=== PATIENT | male | born 2005 | race Caucasian/White ===

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

== ENCOUNTER 2025-06-11 13:53 | Emergency (ER) | payer OTHER, SELFPAY ==
--- OUTSIDE RECORDS SUMMARY | 2025-06-11 13:55 | XMS_ITS | Clinical Summary ---
Author Organization [facility] [employer] Address [address] [place] [address] Care Team Providers Care Tax Lawyer Name Role Phone Prem Silva PA-C Unavailable [phone] Source Comments [facility],non-owned Affiliates and Associated Physician Practices is amultiple site organization consisting of ambulatory clinics and hospital sitesin [place], [place], [place] and [place]. This disclosure is being madepursuant to the Care Everywhere program and may not contain all informatio navailable regarding this patient. Last updated 18.[facility] [employer] Allergies Active Allergy Reactions Criticality Noted Date Comments Ketamine Rash Low 01/06/2011 Medications * Be aware that medications may not be up to date on this document. Alwaysverify current medications with the patient. omeprazole (PRILOSEC) 40 MG capsule Take 1 (one) capsule by mouth daily before breakfast 40 capsule 1 Active Additional Information Patient not taking.Reported on 04/17/2023 ondansetron (ZOFRAN) 4 MG tablet Take 1 (one) tablet by mouth every 6 hours as needed for Nausea/Vomiting 10 tablet 1 Active Additional Information Patient not taking.Reported on 04/17/2023 sertraline (Zoloft) 25 MG tablet Take 1 (one) tablet by mouth once daily 30 tablet 1 2 Active Additional Information Patient not taking.Reported on 04/17/2023 FLUoxetine (PROzac) 10 MG capsule Take 1 (one) capsule by mouth every morning 30 capsule 3 Active Additional Information Patient not taking.Reported on 04/17/2023 hydrOXYzine HCl (Atarax) 25 MG tablet Take 1 (one) tablet by mouth 4 times daily as needed (anxiety) 30 tablet 3 Active Additional Information Patient not taking.Reported on 04/17/2023 dextroamphetamine SR 24hr (Dexedrine Spansule) 10 MG capsuleIndication s:Attention deficit hyperactivity disorder (ADHD), unspecified ADHD type Take 2 (two) capsules by mouth once daily 60 capsule 4 Active Active Problems Problem Noted Date Diagnosed Date Acne vulgaris 05/23/2020 Attention deficit hyperactivity disorder (ADHD) 07/28/2019 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 Resolved Problems Problem Noted Date Diagnosed Date Resolved Date Closed displaced fracture of neck of left fourth metacarpal bone 09/08/2020 04/17/2023 Arthralgia of shoulder 02/17/201310/27 Arthralgia of elbow 02/10/2013 10/27/19 19 Other closed fractures of di stal end of radius (alone) 01/16/2011 05/23/2020 Closed fracture of shaft of bone of forearm 08/17/2010 10/27/2018 Immunizations Immunization Administration Dates Next Due DTaP VACCINE IM (6wk-6yrs) 03/02/2011,,07/22/2006,05/23,03/22/2006 HEP A PEDS 2 DOSE 01/13/2008,01/07/2007 HEP B VACCINE, PED/ADOL 10/04/2006,01/29/2006, HIB-PRP-T 4 DOSE 07/01/2007, 6,05/23/2006,03/22 Human Papilloma Virus Vaccine 12/13/2017, 017 INFLUENZA VACCINE 06/04/2018, 6,06/22/2014,07/23,07/28/2012,07/21/2010 INFLUENZA VACCINE, QUADR. (F LUZONE; FLULAVAL; FLUARIX; AFLURIA QUADRIVALENT; 6MO+), 0.5 ML (IIV4) 05/23/2020,07/28/2019,06/04/2018,06/07,05/25/2016 EVANGELINA VACCINE QUAD LAIV4 PF NASAL 06/22/2014,2012 MENINGOCOCAL MENINGITIS 06/07/2017 MMR 03/02/2011,01/07/2007 Meningococcal ACWY (Menquadfi) Vac IM 04/17/2023 Meningococcal B Recombinant 2 Dose, IM 3,04/17/2023 PNEUMOCOCCAL PCV7 CONJ, PEDS 07/01/2007, 07/22/2006,05/23/2006,03/22 POLIO IPV 03/02/2011, 7,05/23/2006,03/22 TDAP (7yrs+) 01/17/2016 VARICELLA 03/02/2011,01/07/2007 Family History Medical History Relation Name Comments Allergic Rhinitis Father Asthma Father Hypertension Father CAD (Coronary Artery Disease) Maternal Grandfather Cancer - Breast Maternal Grandmother Diabetes - Type 1 Maternal Grandmother Hypertension Mother CVA Paternal Grandmother Relation Name Status Comments Father Maternal Grandfather Maternal Grandmother Mother Paternal Grandmother Social History Tobacco Use Types Packs/Day Years Used Date Smoking Tobacco: Never Smokeless Tobacco: Never PHQ-2 Answer Date Recorded Patient Health Questionnaire-2 Score 0 04/17/2023 Sex and Gender Information Value Date Recorded Sex Assigned at Not on file Legal Sex Male 11:41 AM QUALITY CONTROL HEAD Gender Identity Not on file Sexual Orientation Not on file Last Filed Vital Signs Vital Sign Reading Time Taken Comments Blood Pressure 124/83 04/17/2023 8:40 AM CDT Pulse 50 04/17/2023 8:40 AM CDT Temperature 37.1 C (98.7 F) 04/17/2023 8:40 AM CDT Respiratory Rate 16 07/14/2021 2:50 PM CDT Oxygen Saturation 99% 07/14/2021 11:16 AM CDT Inhaled Oxygen Concentration - - Weight 68 kg (150 lb) 04/17/2023 8:40 AM CDT Height 184.2 cm (6' 0.5) 10/12/2022 4:40 PM QUALITY CONTROL HEAD Body Mass Index - - Plan of Treatment Health Maintenance Due Date Last Done Comments HEPATITIS C SCREENING 12/21/2023 DEPRESSION SCREENING 09/09/2024 10/12/2022, 06/13/2022, 05/23/2020 COVID-19 VACCINE (1 - 2023-2 5 season) 2025 INFLUENZA VACCINE (#1) 2025 , 07/28/2019, 06/04/2018, Additional history exists DTAP/TDAP/TD VACCINES (7 - T d or Tdap) 01/16/2026 01/17/2016, 03/02/2011, 07/01/2007, Additional history exists ZOSTER VACCINE (1 of 2) 12/26/2055 HEPATITIS B VACCINE Completed 10/04/2006, 01/29/2006, 2005 HIB VACCINE Completed 07/01/2007, 07/10, 05/23/2006, Additional history exists PNEUMOCOCCAL VACCINE Completed 07/01/2007, 07/22/2006, 05/23/2006, Additional history exists HPV VACCINE Completed 12/13/2017, 06/07/2017 HIV SCREENING Completed 07/14/2021 MENINGOCOCCAL GROUPS A/C/Y/W VACCINE Completed 04/17/2023, 06/07/2017 MENINGOCOCCAL (Group B) VACC INE SHARED DECISION-MAKING Completed 05/20/2023, 04/17/2023 Goals Goal Patient Goal Type Associated Problems Recent Progress Patient-Stated? Author Use safety retraint in car Lifestyle On track( 023 8:40 AM CDT) No Marlene Davis RN Procedures Procedure Name Priority Date/Time Associated Diagnosis Comments HIV-1 HIV-2 ANTIBODY + HIV P24 AG PANEL STAT 07/14/2021 12:50 PM CDT from Last 3 Months or Most Recently Relevant to Health Maintenance Results * HIV-1 HIV-2 ANTIBODY + HIV P24 AG PANEL (07/14/2021 12:50 PM CDT) HIV Antigen/Antibod y 1 & 2 Non-reacti ve Non-react asif 07/14/2021 2:00 PM CDT [facility] Comment:Neither HIV-1 p24 An tigen nor HIV-1/HIV-2 Antibodies are detected. Blood BLOOD SPECIMEN / Unknown Venipuncture / Unknown 07/14/2021 12:50 PM CDT 07/14/2021 12:58 PM CDT Aristeo Marc MD LAB - CHEMISTRY ORDERABLES Final Result [facility] [address] [place] [address], [facility] [phone] from Last 3 Months or Most Recently Relevant to Health Maintenance Insurance [facility] [place] [address] [facility] [place] [address] Care Teams Tax Lawyer Relationship Specialty Start Date End Date Prem Silva PA-C [address] [place] [address] Orthopedic 10/04/20
--- OUTSIDE RECORDS SUMMARY | 2025-06-11 13:55 | XMS_ITS | Encounter Summary ---
Author Organization [facility] Address [address] [place] [address] Care Team Providers Care Home Maker Name Role Phone Ambar Castro MD Primary Care Provider [phone] Prem Silva-C Unavailable Encounter Details Date Type Department Care Team (Late st Contact Info) Description 07/14/2021 Telephone [facility] PHYS STANDARD [address] [place] [id number] Param Worthy MD [facility] [place], [place] [id number] Social History Tobacco Use Types Packs/Day Years Used Date Smoking Tobacco: Never Smokeless Tobacco: Never Sex and Gender Information Value Date Recorded Sex Assigned at Not on file Legal Sex Male 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 Worsening in the past weeks epigastric/ periumbilical. now with some radiation to the back. + weight loss, and intermittent NBNB emesis. Treated at home with H2RA and NSAIDS. Exam is benign with no signs of peritoneal irritation per ED team. Labs show normal HB/HCT, no leukocytosis, no thrombocytosis, normal lipase, IgA normal I recommended completing TTG IgA , CRP,ESR. Ok to follow up in clinic in 1-2 weeks, recommend PPI 40 mg OD and avoiding NSAIDS, other gastric irritants. Com back to the ER if he has severe pain , hematemesis, melena, intractable emesis, or is otherwiseunable to tolerate PO. Param Santoyo MD FAAP Pediatric Gastroenterology, Hepatology, and Nutrition [facility] Resident Doctor of Pediatrics [facility] documented in this encounter Plan of Treatment Not on file documented as of this encounter Goals Goal Patient Goal Type Associated Problems Recent Progress Patient-Stated? Author Use safety retraint in car Lifestyle On track( 023 8:40 AM CDT) No Marlene Davis RN documented as of this encounter Visit Diagnoses Not on filedocumented in this encounter Care Teams Home Maker Relationship Specialty Start Date End Date Ambar Castro MD PCP - General Pediatrics 10/27/18 04/28/25 Prem Silva PA-C [facility] [place] [address] Orthopedic 10/04/20 documented as of this encounter
--- OUTSIDE RECORDS SUMMARY | 2025-06-11 13:55 | XMS_ITS | Encounter Summary ---
Author Organization [facility] Address [address] Leal: Epic Prelude ADT [place] [address] Care Team Providers Care Grease Maker Head Name Role Phone Kendra Mata MD Primary Care Provider + Encounter Details Date Type Department Care Team (Late st Contact Info) Description 2005 [place] [address] [place] [id number] Single LB-in Hospit[facility] (Primary Dx) Social History Tobacco Use Types Packs/Day Years Used Date Smoking Tobacco: Never Assessed Sex and Gender Information Value Date Recorded Sex Assigned at Not on file Legal Sex Male 2:50 AM INDUSTRIAL SPRAYPAINTER Gender Identity Not on file Sexual Orientation Not on file documented as of this encounter Plan of Treatment Not on file documented as of this encounter Visit Diagnoses Diagnosis Single liveborn, born in hospital, delivered without mention of delivery- Primary documented in this encounter Care Teams Grease Maker Head Relationship Specialty Start Date End Date Kendra Mata MD PCP - General 09/12/09 documented as of this encounter
--- OUTSIDE RECORDS SUMMARY | 2025-06-11 13:55 | XMS_ITS | Encounter Summary ---
Author Organization [facility] Address [address] [place] [address] Care Team Providers Care Project Administrative Assistant Name Role Phone Kendra Mata MD Primary Care Provider + Encounter Details Date Type Department Care Team (Late st Contact Info) Description 2005 Outpatient Historical [facility] Hearing Services [facility] [address] [place] [address] Mary Negro [facility] [address] [place] [address] Social History Tobacco Use Types Packs/Day Years Used Date Smoking Tobacco: Never Assessed Sex and Gender Information Value Date Recorded Sex Assigned at Not on file Legal Sex Male 2:50 AM INFORMATION TECHNOLOGY INSTRUCTOR Gender Identity Not on file Sexual Orientation Not on file documented as of this encounter Plan of Treatment Not on file documented as of this encounter Visit Diagnoses Not on filedocumented in this encounter Care Teams Project Administrative Assistant Relationship Specialty Start Date End Date Kendra Mata MD PCP - General 09/12/09 documented as of this encounter
--- OUTSIDE RECORDS SUMMARY | 2025-06-11 13:55 | XMS_ITS | Clinical Summary ---
Author Organization [facility] Address [address] [place] [address] Phone Care Team Providers Care Content Writer Name Role Phone Kendra Mata MD Primary Care Provider + Allergies No known active allergies Medications No known medications Social History Tobacco Use Types Packs/Day Years Used Date Smoking Tobacco: Never Assessed Sex and Gender Information Value Date Recorded Sex Assigned at Not on file Legal Sex Male 2:50 AM DIET SUPERVISOR Gender Identity Not on file Sexual Orientation Not on file Last Filed Vital Signs Vital Sign Reading Time Taken Comments Blood Pressure - - Pulse 97 10/05/2009 11:13 AM DIET SUPERVISOR Temperature 36.6 C (97.9 F) 10/05/2009 11:13 AM DIET SUPERVISOR Respiratory Rate 20 10/05/2009 11:13 AM DIET SUPERVISOR Oxygen Saturation 97% 10/05/2009 11:13 AM DIET SUPERVISOR Inhaled Oxygen Concentration - - Weight 17.6 kg (38 lb 12.8 oz) 10/05/2009 8:48 A M DIET SUPERVISOR Height - - Body Mass Index - - Plan of Treatment Health Maintenance Due Date Last Done Comments CHLAMYDIA SCREENING (ANNUAL) 11-24 YEARS 2016 HPV VACCINES (1 - Male 3-dose series) 2020 DTAP/TDAP/TD VACCINES (1 - Tdap) 2024 HEPATITIS B VACCINES (1 of 3 - 19+ 3-dose series) 12/08 INFLUENZA VACCINE (#1) 2025 Medical Devices Implanted Type Area Seat Joiner Device Identifier Shelf Expiration Date Model / Serial / Lot Tube Vent Collar Button Ultrasil [id number] - [id number] Implanted:Qty: 1 on 10/05/2009 at [facility] Ear Bilateral : Ear [employer] [id number] / [id number] / Insurance OPT[employer] PPO [id number] [facility] OPTIONS PPO [id number] Care Teams Content Writer Relationship Specialty Start Date End Date Kendra Mata MD PCP - General 09/12/09
[2025-06-11 14:02] VITALS: BP 127/82; PULSE 65; RESP 18; TEMP 36.8; O2SAT 100
--- NOTE | 2025-06-11 14:55 | ED.SKABFB ---
HPI - Skin/Abscess/Foreign Bdy General Chief complaint: Skin/Abscess/Foreign Body Stated complaint: Bilateral Feet Pain Time Seen by Provider: 06/11/25 14:25 Source: patient and RN notes reviewed Mode of arrival: ambulatory Limitations: no limitations History of Present Illness HPI narrative: 19-year-old male presents Express Care complaining of bilateral feet pain proximally 3 weeks. 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 Over the last 2 weeks patient states that he has increasing worsening pain to the bottom of his feet primarily ears toes and reports having sores on the pads of his feet. Patient has tried different socks without relief. Patient has not tried any medications to help with symptoms. Patient says he has athlete's foot in the past. Patient denies any falls or injuries to his feet. Related Data Home Medications ?Medication ?Instructions ?Recorded ?Confirmed ?Last Taken ?Type dextroamphetamine-amphetamine ER 10 mg PO DAILY 09/20/21 06/11/25 Unknown History 20 mg 24hr capsule,extend release Allergies Allergy/AdvReac Type Severity Reaction Status Date / Time ketamine Allergy Severe Anaphylactic Verified 06/11/25 14:02 Shock Review of Systems Review of Systems: CONSTITUTIONAL: Denies fever, chills, or sweats. EYES: Denies visual changes, redness, or discharge. ENT: Denies rhinorrhea, congestion, sore throat, or otalgia. CARDIOVASCULAR: Denies chest pain, palpitations, or edema. RESPIRATORY: Denies cough or dyspnea. GASTROINTESTINAL: Denies abdominal pain, nausea, vomiting, or diarrhea. GENITOURINARY: Denies dysuria or hematuria. SKIN: Denies rash or itching. Positive for wounds. MUSCULOSKELETAL: Denies back pain, joint pain, or myalgia. Positive for feet pain. NEUROLOGIC: Denies headache, numbness, or weakness. PSYCHIATRIC: Denies anxiety or depression. All other systems reviewed are negative, except as documented in HPI. PMFSH Comments At the time of my signature, I reviewed and agree with the nursing past medical, surgical, social, and family history. There is no relevant family history pertinent to the patient complaint. Exam Narrative: GENERAL: This is a well-nourished, well-developed adult, in no apparent distress. They are non ill-appearing, nontoxic appearing. HEAD: normocephalic, atraumatic. EYES: Sclera clear/white. Conjunctiva normal. Vision is grossly intact. Extraocular movements intact EARS: External ears normal, Hearing grossly intact. NOSE: External nose normal THROAT: Mucous membranes moist, NECK: Neck supple, CARDIOVASCULAR: Regular rate and rhythm RESPIRATORY: Respiratory rate normal, respiratory effort nonlabored, no respiratory distress SKIN: Bilateral feet: Forefoot is erythematous, whitish appearing, and macerated to the plantar surface 1 with a plantar surface of toes. Is tender to palpate. No exudate, no area of fluctuance, no induration. Forefoot appears moist. Bilateral pedal pulses 2+ and palpable pit, capillary refill less than 2 seconds. Normal range of motion, normal sensation. Patient is able to wiggle his toes. Neurovascular status intact. NEURO: awake, alert, and oriented to person, place and time. There were no obvious focal neurologic abnormalities. EXTREMITIES: No joint tenderness, effusion, or edema noted. Course Course Emergency Course: Portions of this record may have been created with voice recognition software Level of Care: Express Care Visit Vital Signs Vital signs: Vital Signs Temperature 98.2 F 06/11/25 14:02 Pulse Rate 65 06/11/25 14:02 Respiratory Rate 18 06/11/25 14:02 Blood Pressure 127/82 06/11/25 14:02 Pulse Oximetry 100 06/11/25 14:02 Oxygen Delivery Room Air 06/11/25 14:02 Temperature 98.2 F 06/11/25 14:02 Pulse Rate 65 06/11/25 14:02 Respiratory Rate 18 06/11/25 14:02 Blood Pressure 127/82 06/11/25 14:02 Pulse Oximetry 100 06/11/25 14:02 Oxygen Delivery Room Air 06/11/25 14:02 Reviewed MDM - Skin/Abscess/Foreign Bdy MDM Narrative Medical decision making narrative: Patient has athlete's foot to both of his feet. Prescription of clotrimazole sent to pharmacy. Discussed supportive care and recommend [id number] therapy to help keep his feet dry such as gold Brown powder spray or athlete's foot. Discussed physical exam findings. Advised supportive measures and signs/symptoms to go to the ER. Pt is appropriate for outpt treatment and f/u. Differential Diagnosis Differential diagnosis: Likely dermatophytosis, cellulitis, contact dermatitis and other (Trench foot) Critical Care Time Critical Care Time Critical Care Time: No Discharge Plan Discharge Clinical Impression: Tinea pedis Qualifiers: Laterality: bilateral Qualified Code(s): B35.3 - Tinea pedis Patient Disposition: Home Condition: Stable Instructions: Antibiotic Form, Skin Yeast Infection (ED) Additional Instructions: Use the clotrimazole cream as directed. Please use anti moisture powder or spray such as gold Brown and apply liberally to your feet prior to putting her socks and shoes on to help prevent worsening athlete's foot. You may applied multiple times a day as needed help keep your feet dry. You may also apply to other affected areas if applicable. Wash your feet daily with mild soap and water do not soak or scrub your feet. Please dry your feet thoroughly after showers. Wear breathable socks such as 100% cotton and wear breathable shoes if able at work. You may need to wash your socks in bleach to kill any fungus in your socks. Leave your feet dry and open to air at home when you are not outside or walking around. Patient Language: American Prescriptions: New clotrimazole 1 % cream 1 applic topical BID 28 Days Qty: 45 2RF No Action dextroamphetamine-amphetamine 20 mg capsule,extended release 24hr 10 mg PO DAILY Follow-up/Referrals: PHYSICIAN,[employer] [Primary Care Provider, Internal Medicine] Time of Disposition: 14:38
== END 2025-06-11 14:42 | disposition home or self-care (01) ==
DX: B35.3 Tinea pedis (principal); F90.9 Attention-deficit hyperactivity disorder, unspecified type; Z86.16 Personal history of COVID-19
CPT/HCPCS: 99213; G0463